=== PATIENT | female | born 1965 | race Caucasian/White ===

== ENCOUNTER 2016-12-10 11:49 | Emergency (ER) | payer OTHER ==
[~2016-12-10] VITALS: Ht 167.6 cm; Wt 69.4 kg
[~2016-12-10 11:49] MED LIST: ACETAMINOPHEN-1 EAC1 PO; FIORICET,ESG1 TABLET PO; FLEXERIL5 MG PO; MOTRIN600 MG PO
[2016-12-10] MEDS ORDERED: NASAL SPRAY (12:59)
[2016-12-10] MEDS ORDERED: INDOCIN50 MG PO (14:12)
[2016-12-10 14:25] VITALS: BP 141/68
[2016-12-10 14:31] LABS: D-DIMER ELISA 0.17 mg/L FEU (< 0.57)
== END 2016-12-10 14:25 | disposition home or self-care (01) ==
LOC: EME 11:49
PROVIDERS: Physician Assistant
DX: R07.89 Other chest pain (principal); Z87.891 Personal history of nicotine dependence
CPT/HCPCS: 71020; 85379; 93005; 99281; 99284

== ENCOUNTER 2018-02-10 23:58 | Emergency (ER) | payer OTHER ==
[~2018-02-10] VITALS: Ht 167.6 cm; Wt 64.2 kg
[~2018-02-10 23:58] MED LIST changes: +INDOCIN50 MG PO; +NASAL SPRAY
[2018-02-11 00:24] LABS: HEMOGLOBIN 15.3 G/DL (11.9-15.5); MCH 30.7 PG (29.0-34.0); MCHC 35.6 G/DL (30.0-36.0); MCV 86.2 FL (83-99); PLATELET COUNT 222 K/uL (156-360); RBC DIS.WIDTH-CV 14.4 % (11.8-14.6); RBC DIS.WIDTH-SD 44.7 % (39-53); RED BLOOD COUNT 4.99 M/uL (3.80-5.20); WHITE BLOOD COUNT 8.2 K/uL (4.1-10.2)
[2018-02-11 00:34] LABS: CHLORIDE 99 mEq/L (99-109); POTASSIUM 3.9 mEq/L (3.7-5.4); SODIUM 141 mEq/L (136-147)
[2018-02-11 00:36] LABS: GLUCOSE 151 mg/dL (70-99)
[2018-02-11 00:40] LABS: CREATININE 0.8 mg/dL (0.6-1.3); GFR ESTIMATE (CALCULATED) > 59 mL/min/
[2018-02-11 00:41] LABS: UREA NITROGEN (BUN) 9 mg/dL (9-23)
[2018-02-11 00:48] LABS: TROP-I INTERPRETATION NEGATIVE; TROPONIN-I 0.03 ng/mL (0.0-0.30)
[2018-02-11 01:10] LABS: ALBUMIN 4.9 g/dL (3.2-4.8)
[2018-02-11 01:13] LABS: TOTAL PROTEIN 7.7 g/dL (6.4-8.3)
[2018-02-11 01:14] LABS: TOTAL BILIRUBIN 1.3 mg/dL (0.0-1.0)
[2018-02-11 01:15] LABS: SERUM ETHYL ALCOHOL < 10 mg/dL
[2018-02-11 01:16] LABS: ALKALINE PHOSPHATASE 94 IU/L (3-129)
[2018-02-11 01:18] LABS: AST (GOT) 39 IU/L (2-34); DIRECT BILIRUBIN 0.6 mg/dL (0.0-0.3)
[2018-02-11 01:19] LABS: ALT (GPT) 30 IU/L (3-49)
[2018-02-11] MEDS ORDERED: FLONASE16 G1 BOTH NARES (01:37)
[2018-02-11] MEDS ORDERED: PROZAC20 MG PO (01:39)
[2018-02-11] MEDS ORDERED: ADVIL200 MG PO (01:40)
[2018-02-11 03:28] LABS: TROP-I INTERPRETATION NEGATIVE; TROPONIN-I 0.01 ng/mL (0.0-0.30)
[2018-02-11] MEDS ORDERED: CARDIZEM30 MG PO (03:53)
[2018-02-11 04:45] VITALS: BP 155/77
== END 2018-02-11 04:45 | disposition home or self-care (01) ==
LOC: EME 23:58
PROVIDERS: Emergency Medicine
DX: I48.91 Unspecified atrial fibrillation (principal); G43.909 Migraine, unspecified, not intractable, without status migrainosus; J30.9 Allergic rhinitis, unspecified; Z87.891 Personal history of nicotine dependence
CPT/HCPCS: 71045; 80048; 80076; 83735; 84484; 85027; 93005; 99281; 99285; G0480; J0153; J3475; J7040